=== PATIENT | female | born 1985 | race Two or more races ===

== ENCOUNTER 2022-11-13 14:39 | Emergency (ER) | payer SELFPAY ==
[~2022-11-13] VITALS: Ht 180.3 cm; Wt 110.0 kg
[2022-11-13 15:11] VITALS: BP 152/108
[2022-11-13] MEDS ORDERED: clonazePAM 0.5 MG TAB PO ONE (15:30)
[2022-11-13] MEDS ORDERED: cloNIDine 0.2 mg/24hr 7DAY PATCH TD ONE (15:30)
[2022-11-13] MEDS ORDERED: cloNIDine HCL 0.1 MG TAB PO ONE (15:45)
== END 2022-11-13 16:44 ==
LOC: ER 14:39
DX: I16.0 Hypertensive urgency (principal); I10 Essential (primary) hypertension; R10.2 Pelvic and perineal pain; Z32.02 Encounter for pregnancy test, result negative
CPT/HCPCS: 36415; 81025; 84702